=== PATIENT | male | born 1950 | race Asian ===

== ENCOUNTER 2017-06-06 17:53 | Inpatient (IN) | payer MEDICARE, OTHER ==
[2017-06-06 20:28] LABS: ABNORMAL IP MESSAGE 1; HEMATOCRIT 45.3 % (42.0-52.0); HEMOGLOBIN 15.4 g/dl (14.0-18.0); MEAN CORPUSCULAR HEMOGLOBIN 30.6 pg (29.0-33.0); MEAN CORPUSCULAR VOLUME 90.1 fl (82.0-101.0); MEAN PLATELET VOLUME 10.1 fl (7.4-10.4); PLATELET COUNT 432 10^3/UL (140-415); POSITIVE DIFF @See below; RED BLOOD COUNT 5.03 10^6/ul (4.70-6.10); RED CELL DISTRIBUTION WIDTH 13.7 % (11.5-14.5)
[2017-06-06 20:28] LABS: WHITE BLOOD COUNT 22.7 10^3/ul (4.8-10.8)
[2017-06-06 20:33] LABS: ADD MAN DIFF? YES
[2017-06-06 20:46] LABS: ALANINE AMINOTRANSFERASE 46 IU/L (13-69); ALBUMIN 3.6 g/dl (3.3-4.9); ALBUMIN/GLOBULIN RATIO 0.92; ALKALINE PHOSPHATASE 108 IU/L (42-121); ANION GAP 17 (8-16); ASPARTATE AMINO TRANSFERASE 36 IU/L (15-46); BILIRUBIN,INDIRECT 0.4 mg/dl (0-1.1); BILIRUBIN,TOTAL 0.4 mg/dl (0.2-1.3); BLOOD UREA NITROGEN 10 mg/dl (7-20); CARBON DIOXIDE 25 mmol/L (21-31); CHLORIDE 100 mmol/L (97-110); CREATININE 0.69 mg/dl (0.61-1.24); GLUCOSE 100 mg/dl (70-220); LIPASE 289 U/L (23-300); POTASSIUM 4.2 mmol/L (3.5-5.1); SODIUM 138 mmol/L (135-144); TOTAL PROTEIN 7.5 g/dl (6.1-8.1)
[2017-06-06 20:52] LABS: BAND NEUTROPHILS #M 0.9 10^3/ul (0.0-0.6); BAND NEUTROPHILS % (M) 4 % (0-4); EOSINOPHILS % (M) 41 % (0-7); GIANT THROMBO% (M) 1 % (0-0); LYMPHOCYTES #M 2.2 10^3/ul (0.8-2.9); LYMPHOCYTES % (M) 10 % (15-51); MONOCYTE #M 0.9 10^3/ul (0.3-0.9); MONOCYTES % (M) 4 % (0-11); PLATELET ESTIMATE INCREASED; SEG NEUT #M 9.5 10^3/ul (1.6-7.5); SEGMENTED NEUTROPHILS (M) % 41 % (39-77); SMUDGE%M 3 % (0-0)
[2017-06-06] MEDS: morphine 4 MG/ML VIAL IV (21:01)
[2017-06-06] MEDS: SOD CHLORIDE 0.9% 1,000 ML IV (21:01)
[2017-06-06] MEDS: ONDANSETRON 4 MG INJ IV (21:01)
[2017-06-06 21:28] LABS: ADD UMIC YES; UR ASCORBIC ACID 20 mg/dL (NEGATIVE); UR BILIRUBIN (Dip) NEGATIVE (NEGATIVE); UR BLOOD (Dip) 1+ mg/dL (NEGATIVE); UR CLARITY SLIGHTLY CLOUDY (CLEAR); UR COLOR YELLOW (YELLOW); UR GLUCOSE (Dip) NEGATIVE (NEGATIVE); UR KETONES (Dip) 1+ mg/dL (NEGATIVE); UR LEUKOCYTE ESTERASE (Dip) NEGATIVE Leu/ul (NEGATIVE); UR MUCUS MANY /HPF (NONE SEEN); UR NITRITE (Dip) NEGATIVE (NEGATIVE); UR RBC 5 /HPF (0-5); UR TOTAL PROTEIN (Dip) NEGATIVE (NEGATIVE); UR UROBILINOGEN (Dip) NEGATIVE (NEGATIVE); UR WBC 2 /HPF (0-5)
[2017-06-06] MEDS: PIPER-TAZO 3.375 GM IV (PMX) 100 ML IVPB (23:09)
[2017-06-06] MEDS ORDERED: ACETAMINOPHEN 325 MG TAB PO ×2 (23:30)
[2017-06-06] MEDS ORDERED: ONDANSETRON 4 MG INJ IV ×2 (23:30)
[2017-06-07] MEDS ORDERED: ONDANSETRON 4 MG INJ IV (03:30)
[2017-06-07] MEDS ORDERED: NACL 0.9% 3 ML SYG IV (03:30)
[2017-06-07] MEDS ORDERED: morphine 2 MG INJ IV (03:30)
[2017-06-07] MEDS ORDERED: HYDROCODONE/APAP (5/325) TAB PO (03:30)
[2017-06-07] MEDS: MONTELUKAST 10 MG TAB PO ×2 (04:17→21:25)
[2017-06-07] MEDS: D5W-0.45 NACL + KCL 20 MEQ 1,000 ML IV ×2 (04:17→19:00)
[2017-06-07] MEDS: PIPER-TAZO 3.375 GM IV (PMX) 100 ML IVPB ×3 (05:59→23:01)
[2017-06-07] MEDS: metroNIDAZOLE 500 MG/NS (PMX) 100 ML IVPB ×3 (06:50→21:24)
[2017-06-07] MEDS: SALMETEROL/FLUTICASONE 250/50 INHA INH (08:30)
[2017-06-07] MEDS: FAMOTIDINE 20 MG INJ IV ×2 (08:30→21:25)
[2017-06-07] MEDS: predniSONE 5 MG TAB PO ×2 (11:49→21:25)
[2017-06-07] MEDS: HYDROCORTISONE 100 MG INJ IV (12:38)
[2017-06-07] MEDS: SALMETEROL/FLUTICASONE 500/50 INHA INH (21:23)
[2017-06-08] MEDS: D5W-0.45 NACL + KCL 20 MEQ 1,000 ML IV ×2 (04:20→11:12)
[2017-06-08 06:16] LABS: WHITE BLOOD COUNT 19.6 10^3/ul (4.8-10.8)
[2017-06-08 06:16] LABS: ABNORMAL IP MESSAGE 1; HEMATOCRIT 38.3 % (42.0-52.0); HEMOGLOBIN 12.8 g/dl (14.0-18.0); MEAN CORPUSCULAR HEMOGLOBIN 30.6 pg (29.0-33.0); MEAN CORPUSCULAR HGB CONC 33.4 g/dl (32.0-37.0); MEAN CORPUSCULAR VOLUME 91.6 fl (82.0-101.0); MEAN PLATELET VOLUME 10.4 fl (7.4-10.4); PLATELET COUNT 408 10^3/UL (140-415); RED BLOOD COUNT 4.18 10^6/ul (4.70-6.10)
[2017-06-08] MEDS: PIPER-TAZO 3.375 GM IV (PMX) 100 ML IVPB ×2 (06:22→14:00)
[2017-06-08 06:49] LABS: ALANINE AMINOTRANSFERASE 41 IU/L (13-69); ALBUMIN/GLOBULIN RATIO 0.83; ALKALINE PHOSPHATASE 80 IU/L (42-121); ANION GAP 14 (8-16); ASPARTATE AMINO TRANSFERASE 26 IU/L (15-46); BILIRUBIN,INDIRECT 0.2 mg/dl (0-1.1); BILIRUBIN,TOTAL 0.2 mg/dl (0.2-1.3); BLOOD UREA NITROGEN 6 mg/dl (7-20); CALCIUM 8.5 mg/dl (8.4-10.2); CARBON DIOXIDE 27 mmol/L (21-31); CHLORIDE 106 mmol/L (97-110); CREATININE 0.77 mg/dl (0.61-1.24); GLUCOSE 115 mg/dl (70-220); POTASSIUM 3.8 mmol/L (3.5-5.1); SODIUM 143 mmol/L (135-144); TOTAL PROTEIN 6.6 g/dl (6.1-8.1)
[2017-06-08] MEDS: metroNIDAZOLE 500 MG/NS (PMX) 100 ML IVPB ×2 (06:53→14:00)
[2017-06-08 07:05] LABS: ADD MAN DIFF? YES
[2017-06-08] MEDS: FAMOTIDINE 20 MG INJ IV (08:10)
[2017-06-08] MEDS: SALMETEROL/FLUTICASONE 500/50 INHA INH (08:10)
[2017-06-08] MEDS: predniSONE 5 MG TAB PO (08:10)
[2017-06-08 09:38] LABS: BASOPHIL # 0.2 10^3/ul (0.0-0.1); EOSINOPHILS # 7.4 10^3/ul (0.0-0.5); EOSINOPHILS % (M) 38 % (0.0-7.0); LYMPHOCYTES # 1.4 10^3/ul (0.8-2.9); LYMPHOCYTES #M 1.3 10^3/ul (0.8-2.9); LYMPHOCYTES % (M) 7 % (15-51); MONOCYTE # 1.8 10^3/ul (0.3-0.9); MONOCYTE #M 1.7 10^3/ul (0.3-0.9); MONOCYTES % (M) 9 % (0-11); SEGMENTED NEUTROPHILS (M) % 45 % (39-77)
[2017-06-08 09:39] LABS: BURR CELLS FEW
== END 2017-06-08 15:13 | disposition home or self-care (01) | DRG 392 ==
LOC: PP2 23:29 → FTE 17:53
DX: K57.32 Diverticulitis of large intestine without perforation or abscess without bleeding (principal); J82 Pulmonary eosinophilia, not elsewhere classified; K80.20 Calculus of gallbladder without cholecystitis without obstruction; Z87.891 Personal history of nicotine dependence
CPT/HCPCS: 36415; 74176; 76705; 80053; 81001; 83690; 84484; 85025; 93005; 96374; 96375; 99285-25

== ENCOUNTER 2017-06-10 10:22 | Emergency (ER) | payer MEDICARE, OTHER ==
[2017-06-10] MEDS: SOD CHLORIDE 0.9% 1,000 ML IV (11:47)
[2017-06-10] MEDS: PANTOPRAZOLE 40 MG INJ IV (11:47)
[2017-06-10 12:09] LABS: ABNORMAL IP MESSAGE 1; HEMOGLOBIN 14.9 g/dl (14.0-18.0); MEAN CORPUSCULAR HEMOGLOBIN 30.7 pg (29.0-33.0); MEAN CORPUSCULAR HGB CONC 33.9 g/dl (32.0-37.0); MEAN CORPUSCULAR VOLUME 90.7 fl (82.0-101.0); MEAN PLATELET VOLUME 10.2 fl (7.4-10.4); PLATELET COUNT 466 10^3/UL (140-415); POSITIVE DIFF @See below; RED BLOOD COUNT 4.85 10^6/ul (4.70-6.10); RED CELL DISTRIBUTION WIDTH 13.9 % (11.5-14.5)
[2017-06-10 12:09] LABS: WHITE BLOOD COUNT 19.3 10^3/ul (4.8-10.8)
[2017-06-10 12:13] LABS: ADD MAN DIFF? YES
[2017-06-10 12:24] LABS: INR 1.36; PT RATIO 1.3
[2017-06-10 12:25] LABS: OCCULT BLOOD STOOL NEGATIVE (NEGATIVE)
[2017-06-10 12:25] LABS: PARTIAL THROMBOPLASTIN TIME 32.6 Sec (25.0-35.0)
[2017-06-10 12:29] LABS: ALANINE AMINOTRANSFERASE 40 IU/L (13-69); ALBUMIN 3.4 g/dl (3.3-4.9); ALBUMIN/GLOBULIN RATIO 0.87; ALKALINE PHOSPHATASE 87 IU/L (42-121); ANION GAP 15 (8-16); ASPARTATE AMINO TRANSFERASE 51 IU/L (15-46); BILIRUBIN,INDIRECT 0.5 mg/dl (0-1.1); BILIRUBIN,TOTAL 0.5 mg/dl (0.2-1.3); BLOOD UREA NITROGEN 9 mg/dl (7-20); CALCIUM 8.6 mg/dl (8.4-10.2); CARBON DIOXIDE 25 mmol/L (21-31); CHLORIDE 100 mmol/L (97-110); CREATININE 0.73 mg/dl (0.61-1.24); GLUCOSE 106 mg/dl (70-220); POTASSIUM 3.7 mmol/L (3.5-5.1); SODIUM 136 mmol/L (135-144); TOTAL PROTEIN 7.3 g/dl (6.1-8.1)
[2017-06-10 12:45] LABS: BAND NEUTROPHILS #M 2.3 10^3/ul (0.0-0.6); BAND NEUTROPHILS % (M) 12 % (0-4); BURR CELLS 2+ (0-0); EOSINOPHILS % (M) 9 % (0-7); LYMPHOCYTES #M 2.8 10^3/ul (0.8-2.9); LYMPHOCYTES % (M) 15 % (15-51); MONOCYTE #M 0.3 10^3/ul (0.3-0.9); MONOCYTES % (M) 2 % (0-11); PLATELET ESTIMATE INCREASED; POIKILOCYTOSIS 2+ (0-0); POLYCHROMASIA 3+ (0-0); REACTIVE LYMPHOCYTES #M 0.1 10^3/ul (0.0-0.0); REACTIVE LYMPHOCYTES% (M) 1 % (0-0); SEG NEUT #M 12.4 10^3/ul (1.6-7.5); SEGMENTED NEUTROPHILS (M) % 62 % (39-77); SMUDGE%M 5 % (0-0)
[2017-06-10 13:01] LABS: TROPONIN-I 0.051 ng/ml (0.00-0.12)
== END 2017-06-10 13:46 | disposition home or self-care (01) ==
LOC: E/R 10:22
DX: K62.5 Hemorrhage of anus and rectum (principal); Z87.891 Personal history of nicotine dependence
CPT/HCPCS: 36415; 80053; 82270; 84484; 85025; 85610; 85730; 86850; 86900; 86901; 93005; 96374; 99284-25

== ENCOUNTER 2017-06-21 16:14 | Inpatient (IN) | payer MEDICARE, OTHER ==
[2017-06-21] MEDS ORDERED: SOD CHLORIDE 0.9% 100 ML (20:37)
[2017-06-21] MEDS ORDERED: IOHEXOL 300MG/ML 150 ML BTL (20:37)
[2017-06-21 20:55] LABS: ABNORMAL IP MESSAGE 1; HEMATOCRIT 43.9 % (42.0-52.0); HEMOGLOBIN 15.4 g/dl (14.0-18.0); MEAN CORPUSCULAR HEMOGLOBIN 30.6 pg (29.0-33.0); MEAN CORPUSCULAR HGB CONC 35.1 g/dl (32.0-37.0); MEAN CORPUSCULAR VOLUME 87.3 fl (82.0-101.0); MEAN PLATELET VOLUME 9.8 fl (7.4-10.4); PLATELET COUNT 540 10^3/UL (140-415); POSITIVE DIFF @See below; RED BLOOD COUNT 5.03 10^6/ul (4.70-6.10); RED CELL DISTRIBUTION WIDTH 13.6 % (11.5-14.5)
[2017-06-21 21:19] LABS: ALANINE AMINOTRANSFERASE 35 IU/L (13-69); ALBUMIN 3.2 g/dl (3.3-4.9); ALBUMIN/GLOBULIN RATIO 0.82; ALKALINE PHOSPHATASE 77 IU/L (42-121); ANION GAP 14 (8-16); ASPARTATE AMINO TRANSFERASE 37 IU/L (15-46); BILIRUBIN,INDIRECT 0.3 mg/dl (0-1.1); BILIRUBIN,TOTAL 0.3 mg/dl (0.2-1.3); BLOOD UREA NITROGEN 13 mg/dl (7-20); CALCIUM 8.8 mg/dl (8.4-10.2); CARBON DIOXIDE 26 mmol/L (21-31); CHLORIDE 94 mmol/L (97-110); CREATININE 0.69 mg/dl (0.61-1.24); GLUCOSE 100 mg/dl (70-220); LIPASE 229 U/L (23-300); SODIUM 130 mmol/L (135-144); TOTAL PROTEIN 7.1 g/dl (6.1-8.1)
[2017-06-21 21:27] LABS: ADD MAN DIFF? YES
[2017-06-21] MEDS: IOHEXOL 300MG/ML 150 ML BTL (22:00)
[2017-06-21] MEDS: SOD CHLORIDE 0.9% 100 ML (22:00)
[2017-06-21 22:28] LABS: BAND NEUTROPHILS #M 0.7 10^3/ul (0.0-0.6); BAND NEUTROPHILS % (M) 3 % (0-4); EOSINOPHILS % (M) 49 % (0-7); LYMPHOCYTES #M 0.5 10^3/ul (0.8-2.9); LYMPHOCYTES % (M) 2 % (15-51); METAMYELOCYTES #M 0.2 10^3/ul (0.0-0.0); METAMYELOCYTES %M 1 % (0-0); MONOCYTE #M 0.7 10^3/ul (0.3-0.9); MONOCYTES % (M) 3 % (0-11); PLATELET ESTIMATE INCREASED; POIKILOCYTOSIS 2+ (0-0); SEG NEUT #M 10.7 10^3/ul (1.6-7.5); SEGMENTED NEUTROPHILS (M) % 42 % (39-77); SMUDGE%M 5 % (0-0)
[2017-06-22 00:11] LABS: ADD UMIC YES; UR ASCORBIC ACID NEGATIVE (NEGATIVE); UR BILIRUBIN (Dip) NEGATIVE (NEGATIVE); UR BLOOD (Dip) 1+ mg/dL (NEGATIVE); UR CLARITY CLEAR (CLEAR); UR COLOR YELLOW (YELLOW); UR GLUCOSE (Dip) NEGATIVE (NEGATIVE); UR KETONES (Dip) 1+ mg/dL (NEGATIVE); UR LEUKOCYTE ESTERASE (Dip) NEGATIVE Leu/ul (NEGATIVE); UR MUCUS FEW /HPF (NONE SEEN); UR NITRITE (Dip) NEGATIVE (NEGATIVE); UR RBC 1 /HPF (0-5); UR SPECIFIC GRAVITY (Dip) > 1.060 (1.003-1.030); UR TOTAL PROTEIN (Dip) NEGATIVE (NEGATIVE); UR UROBILINOGEN (Dip) NEGATIVE (NEGATIVE); UR WBC 1 /HPF (0-5)
[2017-06-22] MEDS: CEFTRIAXONE 1 GM/50 ML (PMX) 50 ML IVPB (01:07)
[2017-06-22] MEDS: SODIUM CHLORIDE 0.9% 1L BAG IV* (01:12)
[2017-06-22] MEDS ORDERED: ONDANSETRON 4 MG INJ IV (01:30)
[2017-06-22] MEDS ORDERED: NA PHOSPHATE/BIPHOS 133 ML ENEMA PR (01:30)
[2017-06-22] MEDS ORDERED: NACL 0.9% 3 ML SYG IV (01:30)
[2017-06-22] MEDS ORDERED: ACETAMINOPHEN 325 MG TAB PO (01:30)
[2017-06-22] MEDS: metroNIDAZOLE 500 MG/NS (PMX) 100 ML IVPB ×4 (03:00→22:18)
[2017-06-22 04:56] LABS: INR 1.24; PROTIME 15.8 Sec (11.9-14.9); PT RATIO 1.2
[2017-06-22 04:57] LABS: PARTIAL THROMBOPLASTIN TIME 31.1 Sec (25.0-35.0)
[2017-06-22] MEDS: DEXTROSE 5%-LR 1,000 ML IV ×3 (05:30→23:58)
[2017-06-22] MEDS: HYDROCORTISONE 100 MG INJ IV ×3 (05:30→22:20)
[2017-06-22] MEDS: PIPER-TAZO 3.375 GM IV (PMX) 100 ML IVPB ×3 (08:15→22:28)
[2017-06-22] MEDS: FAMOTIDINE 20 MG INJ IV ×2 (08:27→21:10)
[2017-06-22] MEDS ORDERED: FENTAnyl 50 MCG/ML VIAL (08:51)
[2017-06-22] MEDS ORDERED: MIDAZOLAM 1 MG/ML 2 ML INJ (08:55)
[2017-06-22] MEDS: SALMETEROL/FLUTICASONE 250/50 INHA INH ×2 (10:47→21:10)
[2017-06-22] MEDS ORDERED: morphine SULFATE/PF (10 MG/10 ML) INJ (10:54)
[2017-06-22] MEDS ORDERED: PHENYLephrine (100 MCG/ML) 5ML SYG (11:15)
[2017-06-22 11:47] LABS: ABNORMAL IP MESSAGE 1; HEMATOCRIT 40.8 % (42.0-52.0); HEMOGLOBIN 14.1 g/dl (14.0-18.0); MEAN CORPUSCULAR HEMOGLOBIN 31.2 pg (29.0-33.0); MEAN CORPUSCULAR HGB CONC 34.6 g/dl (32.0-37.0); MEAN CORPUSCULAR VOLUME 90.3 fl (82.0-101.0); MEAN PLATELET VOLUME 10.6 fl (7.4-10.4); PLATELET COUNT 522 10^3/UL (140-415); POSITIVE DIFF @See below; RED BLOOD COUNT 4.52 10^6/ul (4.70-6.10); RED CELL DISTRIBUTION WIDTH 14.1 % (11.5-14.5)
[2017-06-22 11:47] LABS: WHITE BLOOD COUNT 35.8 10^3/ul (4.8-10.8)
[2017-06-22 11:51] LABS: ADD MAN DIFF? YES
[2017-06-22 12:22] LABS: BAND NEUTROPHILS #M 0.3 10^3/ul (0.0-0.6); BAND NEUTROPHILS % (M) 1 % (0-4); BURR CELLS 1+ (0-0); EOSINOPHILS % (M) 69 % (0-7); LYMPHOCYTES % (M) 3 % (15-51); MONOCYTE #M 0.7 10^3/ul (0.3-0.9); MONOCYTES % (M) 2 % (0-11); PLATELET ESTIMATE INCREASED; POIKILOCYTOSIS 1+ (0-0); SEG NEUT #M 9.1 10^3/ul (1.6-7.5); SEGMENTED NEUTROPHILS (M) % 25 % (39-77); SMUDGE%M 11 % (0-0)
[2017-06-22] MEDS: LEVALBUTEROL (NEB) 1.25 MG/0.5 ML AMP HHN (12:59)
[2017-06-22 13:10] LABS: ADD MAN DIFF? NO
[2017-06-22 13:12] LABS: ABNORMAL IP MESSAGE 1; BASOPHIL # 0.1 10^3/ul (0.0-0.1); BASOPHILS % 0.4 % (0.0-2.0); EOSINOPHILS # 7.2 10^3/ul (0.0-0.5); EOSINOPHILS % 39.1 % (0.0-7.0); HEMATOCRIT 38.9 % (42.0-52.0); HEMOGLOBIN 13.3 g/dl (14.0-18.0); LYMPHOCYTES # 1.3 10^3/ul (0.8-2.9); LYMPHOCYTES % 7.2 % (15.0-51.0); MEAN CORPUSCULAR HEMOGLOBIN 30.5 pg (29.0-33.0); MEAN CORPUSCULAR HGB CONC 34.2 g/dl (32.0-37.0); MEAN CORPUSCULAR VOLUME 89.2 fl (82.0-101.0); MEAN PLATELET VOLUME 9.7 fl (7.4-10.4); MONOCYTE # 0.7 10^3/ul (0.3-0.9); MONOCYTES % 3.9 % (0.0-11.0); PLATELET COUNT 490 10^3/UL (140-415); POSITIVE DIFF @See below; RED BLOOD COUNT 4.36 10^6/ul (4.70-6.10); RED CELL DISTRIBUTION WIDTH 13.7 % (11.5-14.5)
[2017-06-22 13:12] LABS: WHITE BLOOD COUNT 18.3 10^3/ul (4.8-10.8)
[2017-06-22] MEDS: morphine 2 MG INJ IV (14:53)
[2017-06-22] MEDS: ONDANSETRON 4 MG INJ IV (15:10)
[2017-06-22] MEDS: MONTELUKAST 10 MG TAB PO (22:17)
[2017-06-23 05:17] LABS: ADD MAN DIFF? NO
[2017-06-23 05:24] LABS: WHITE BLOOD COUNT 11.6 10^3/ul (4.8-10.8)
[2017-06-23 05:24] LABS: BASOPHIL # 0.1 10^3/ul (0.0-0.1); BASOPHILS % 0.4 % (0.0-2.0); EOSINOPHILS # 1.3 10^3/ul (0.0-0.5); EOSINOPHILS % 10.9 % (0.0-7.0); HEMOGLOBIN 12.1 g/dl (14.0-18.0); LYMPHOCYTES % 8.2 % (15.0-51.0); MEAN CORPUSCULAR HEMOGLOBIN 29.9 pg (29.0-33.0); MEAN CORPUSCULAR HGB CONC 33.6 g/dl (32.0-37.0); MEAN CORPUSCULAR VOLUME 88.9 fl (82.0-101.0); MEAN PLATELET VOLUME 9.9 fl (7.4-10.4); MONOCYTE # 0.7 10^3/ul (0.3-0.9); MONOCYTES % 5.6 % (0.0-11.0); NEUTROPHIL # 8.6 10^3/ul (1.6-7.5); NEUTROPHILS % 74.2 % (39.0-77.0); PLATELET COUNT 466 10^3/UL (140-415); RED BLOOD COUNT 4.05 10^6/ul (4.70-6.10); RED CELL DISTRIBUTION WIDTH 13.7 % (11.5-14.5)
[2017-06-23] MEDS: HYDROCORTISONE 100 MG INJ IV ×3 (05:35→22:02)
[2017-06-23] MEDS: PIPER-TAZO 3.375 GM IV (PMX) 100 ML IVPB ×3 (05:35→22:02)
[2017-06-23 06:10] LABS: ALANINE AMINOTRANSFERASE 29 IU/L (13-69); ALBUMIN 2.5 g/dl (3.3-4.9); ALBUMIN/GLOBULIN RATIO 0.73; ALKALINE PHOSPHATASE 50 IU/L (42-121); ANION GAP 10 (8-16); ASPARTATE AMINO TRANSFERASE 22 IU/L (15-46); BLOOD UREA NITROGEN 7 mg/dl (7-20); CALCIUM 8.2 mg/dl (8.4-10.2); CARBON DIOXIDE 31 mmol/L (21-31); CHLORIDE 101 mmol/L (97-110); GLUCOSE 147 mg/dl (70-220); POTASSIUM 3.5 mmol/L (3.5-5.1); SODIUM 138 mmol/L (135-144); TOTAL PROTEIN 5.9 g/dl (6.1-8.1)
[2017-06-23] MEDS: metroNIDAZOLE 500 MG/NS (PMX) 100 ML IVPB ×3 (06:21→22:20)
[2017-06-23] MEDS: FAMOTIDINE 20 MG INJ IV ×2 (08:52→21:09)
[2017-06-23] MEDS: SALMETEROL/FLUTICASONE 250/50 INHA INH ×2 (08:52→21:09)
[2017-06-23] MEDS: DEXTROSE 5%-LR 1,000 ML IV ×3 (10:00→21:09)
[2017-06-23] MEDS: INFLUENZA VIRUS VACCINE 0.5 ML SYG IM* (13:46)
[2017-06-23] MEDS: MONTELUKAST 10 MG TAB PO (21:09)
[2017-06-24] MEDS: HYDROCORTISONE 100 MG INJ IV ×3 (05:33→22:22)
[2017-06-24] MEDS: PIPER-TAZO 3.375 GM IV (PMX) 100 ML IVPB ×3 (05:34→22:22)
[2017-06-24] MEDS: DEXTROSE 5%-LR 1,000 ML IV ×2 (07:13→13:30)
[2017-06-24] MEDS: metroNIDAZOLE 500 MG/NS (PMX) 100 ML IVPB ×3 (07:13→21:09)
[2017-06-24] MEDS: FAMOTIDINE 20 MG INJ IV ×2 (09:07→22:22)
[2017-06-24] MEDS: SALMETEROL/FLUTICASONE 250/50 INHA INH ×2 (09:07→21:09)
[2017-06-24] MEDS ORDERED: BUPIVACAINE 0.25% (MPF) 30 ML INJ (15:56)
[2017-06-24] MEDS ORDERED: LIDOCAINE 1%/EPI 30 ML INJ (15:56)
[2017-06-24] MEDS: LIDOCAINE 1.5%/EPI MPF (SDV) 30 ML VIAL INJ (16:00)
[2017-06-24] MEDS: BUPIVACAINE 0.25% (STERILE-PAK) 30 ML INJ INJ (16:00)
[2017-06-24] MEDS ORDERED: PROPOFOL 20 ML (16:25)
[2017-06-24] MEDS ORDERED: ROPIVACAINE 0.5 % 30 ML VIAL (16:25)
[2017-06-24] MEDS ORDERED: FENTAnyl 50 MCG/ML VIAL (16:25)
[2017-06-24] MEDS ORDERED: CEFAZOLIN 1 GM INJ (16:25)
[2017-06-24] MEDS ORDERED: MIDAZOLAM 1 MG/ML 2 ML INJ (16:25)
[2017-06-24] MEDS ORDERED: ROCURONIUM 50 MG INJ (16:25)
[2017-06-24] MEDS ORDERED: HYDROCORTISONE 100 MG INJ (16:26)
[2017-06-24] MEDS ORDERED: KETOROLAC 30 MG INJ (16:50)
[2017-06-24] MEDS ORDERED: DEXAMETHASONE 4 MG/ML 1 ML INJ (16:50)
[2017-06-24] MEDS ORDERED: METOCLOPRAMIDE 10 MG INJ (16:50)
[2017-06-24] MEDS ORDERED: SUGAMMADEX SODIUM 200 MG/2 ML VIAL IV (16:50)
[2017-06-24] MEDS ORDERED: ONDANSETRON 4 MG INJ (16:50)
[2017-06-24] MEDS ORDERED: hydrALAzine 20 MG INJ (16:56)
[2017-06-24] MEDS ORDERED: IBUPROFEN 600 MG TAB PO (17:30)
[2017-06-24] MEDS ORDERED: LABETALOL HCL 20MG INJ IV (17:30)
[2017-06-24] MEDS ORDERED: FENTAnyl 50 MCG/ML VIAL IV ×3 (17:30)
[2017-06-24] MEDS ORDERED: ACETAMINOPHEN 325 MG TAB PO (17:30)
[2017-06-24] MEDS ORDERED: HYDROmorphONE 0.5 MG/0.5 ML SYG IV (17:30)
[2017-06-24] MEDS ORDERED: hydrALAzine 20 MG INJ IV (17:30)
[2017-06-24] MEDS ORDERED: ONDANSETRON 4 MG INJ IV (17:30)
[2017-06-24] MEDS ORDERED: MEPERIDINE 25 MG INJ IV (17:30)
[2017-06-24] MEDS ORDERED: EPHEDrine SULFATE 50 MG/5 ML SYG IV (17:30)
[2017-06-24] MEDS ORDERED: HYDROmorphONE (0.2 MG/ML) 10ML SYG IV ×2 (17:30)
[2017-06-24] MEDS ORDERED: METOCLOPRAMIDE 10 MG INJ IV (17:30)
[2017-06-24] MEDS ORDERED: DIPHENHYDRAMINE 50 MG INJ IV (17:30)
[2017-06-24] MEDS: D5W-0.45 NACL + KCL 20 MEQ 1,000 ML IV (19:47)
[2017-06-24] MEDS: MONTELUKAST 10 MG TAB PO (21:09)
[2017-06-25] MEDS: D5W-0.45 NACL + KCL 20 MEQ 1,000 ML IV (03:05)
[2017-06-25] MEDS: metroNIDAZOLE 500 MG/NS (PMX) 100 ML IVPB ×2 (05:02→14:25)
[2017-06-25] MEDS: HYDROCORTISONE 100 MG INJ IV ×2 (05:05→16:41)
[2017-06-25 05:30] LABS: ADD MAN DIFF? NO
[2017-06-25 05:36] LABS: WHITE BLOOD COUNT 9.8 10^3/ul (4.8-10.8)
[2017-06-25 05:36] LABS: ABNORMAL IP MESSAGE 1; BASOPHILS % 0.1 % (0.0-2.0); HEMATOCRIT 36.3 % (42.0-52.0); LYMPHOCYTES # 0.4 10^3/ul (0.8-2.9); LYMPHOCYTES % 4.2 % (15.0-51.0); MEAN CORPUSCULAR HEMOGLOBIN 29.7 pg (29.0-33.0); MEAN CORPUSCULAR HGB CONC 33.1 g/dl (32.0-37.0); MEAN CORPUSCULAR VOLUME 89.9 fl (82.0-101.0); MEAN PLATELET VOLUME 10.3 fl (7.4-10.4); MONOCYTE # 0.6 10^3/ul (0.3-0.9); MONOCYTES % 6.4 % (0.0-11.0); NEUTROPHIL # 8.7 10^3/ul (1.6-7.5); NEUTROPHILS % 88.7 % (39.0-77.0); PLATELET COUNT 487 10^3/UL (140-415); POSITIVE DIFF @See below; RED BLOOD COUNT 4.04 10^6/ul (4.70-6.10); RED CELL DISTRIBUTION WIDTH 14.2 % (11.5-14.5)
[2017-06-25 06:05] LABS: ALANINE AMINOTRANSFERASE 38 IU/L (13-69); ALBUMIN 2.7 g/dl (3.3-4.9); ALBUMIN/GLOBULIN RATIO 0.77; ALKALINE PHOSPHATASE 58 IU/L (42-121); ANION GAP 10 (8-16); ASPARTATE AMINO TRANSFERASE 53 IU/L (15-46); BLOOD UREA NITROGEN 11 mg/dl (7-20); CALCIUM 8.2 mg/dl (8.4-10.2); CARBON DIOXIDE 31 mmol/L (21-31); CHLORIDE 102 mmol/L (97-110); CREATININE 0.63 mg/dl (0.61-1.24); GLUCOSE 136 mg/dl (70-220); POTASSIUM 3.4 mmol/L (3.5-5.1); SODIUM 140 mmol/L (135-144); TOTAL PROTEIN 6.2 g/dl (6.1-8.1)
[2017-06-25] MEDS: ENOXAPARIN 40 MG/0.4 ML SYG SC (06:08)
[2017-06-25] MEDS: PIPER-TAZO 3.375 GM IV (PMX) 100 ML IVPB ×2 (06:09→15:40)
[2017-06-25] MEDS: OXYCODONE/ACETAMINOPHEN (5/325) TAB PO (08:30)
[2017-06-25] MEDS: FAMOTIDINE 20 MG INJ IV (08:31)
[2017-06-25] MEDS: SALMETEROL/FLUTICASONE 250/50 INHA INH (09:02)
[2017-06-25] MEDS ORDERED: POTASSIUM CHLORIDE 50 ML IVPB (13:00)
[2017-06-25] MEDS: POTASSIUM CHLORIDE 20 MEQ /SW 100 ML IVPB (14:11)
[2017-06-25] MEDS: POTASSIUM CHLORIDE (SR) 20 MEQ TAB PO (14:20)
== END 2017-06-25 21:40 | disposition home or self-care (01) | DRG 418 ==
LOC: MS3 06-22 01:08 → E/R 16:14
PROC: 0FT44ZZ Resection of Gallbladder, Percutaneous Endoscopic Approach (ICD-10-PCS; principal; 2017-06-24 16:24)
PROC: 3E0234Z Introduction of Serum, Toxoid and Vaccine into Muscle, Percutaneous Approach (ICD-10-PCS; 2017-06-24 16:26)
DX: K80.12 Calculus of gallbladder with acute and chronic cholecystitis without obstruction (principal); J82 Pulmonary eosinophilia, not elsewhere classified; K57.32 Diverticulitis of large intestine without perforation or abscess without bleeding; E11.9 Type 2 diabetes mellitus without complications; Z98.1 Arthrodesis status; Z87.891 Personal history of nicotine dependence; Z23 Encounter for immunization
CPT/HCPCS: 36415; 74177; 76705; 80053; 81001; 83690; 85025; 85610; 85730; 87040; 87086; 88304; 90686; 94664; 96374; 96375; 99285-25

== ENCOUNTER 2017-07-21 10:04 | Emergency (ER) | payer MEDICARE, OTHER ==
[2017-07-21] MEDS: CLINDAMYCIN 300 MG CAP PO (13:23)
== END 2017-07-21 13:36 | disposition home or self-care (01) ==
LOC: E/R 10:04
DX: L03.115 Cellulitis of right lower limb (principal); J45.909 Unspecified asthma, uncomplicated; E11.9 Type 2 diabetes mellitus without complications
CPT/HCPCS: 99283